=== PATIENT | male | born 1995 ===

== ENCOUNTER 2018-01-14 02:53 | Emergency (ER) | payer OTHER ==
[~2018-01-14] VITALS: Ht 172.7 cm; Wt 71.0 kg
[2018-01-14 02:52] VITALS: TEMP 36.8; Ht 172.7 cm; Wt 71.0 kg
[2018-01-14] MEDS ORDERED: RABIES VACCINE (IMOVAX) HUMAN DIPL CELL 2.5 INTER.UNIT/ML SYR IM. ONE (03:15)
[2018-01-14] MEDS ORDERED: RABIES IMMUNE GLOBULIN 300 UNIT/ML INJ IM. ONE (03:15)
[2018-01-14 03:44] VITALS: BP 135/79; PULSE 62; O2SAT 100
--- NOTE | 2018-01-14 06:57 | EMERGENCY ROOM VISIT NOTE ---
ED Visit Note First contact with patient: 02:54 CHIEF COMPLAINT: Rabies exposure HISTORY OF PRESENT ILLNESS: This 22 year old male patient presents to the emergency department with complaint of possible rabies exposure. The patient states that he was asleep in his apartment, and when he awoke there was a bat in the room. The patient does not have obvious injury or trauma. He was concerned for possible exposure. He is reportedly up-to-date on his tetanus and otherwise healthy. REVIEW OF SYSTEMS: A 6 system review of systems was completed with positives and pertinent negatives listed in the HPI. ALLERGIES: NKDA MEDICATIONS: None PMH: Otherwise healthy. SOCIAL HISTORY: Student living locally. PHYSICAL EXAM: Vital Signs: Reviewed Nurse's notes, vital signs stable. GENERAL : White male, in no acute distress, well-developed, well-nourished. HEAD: Atraumatic, without temporal or scalp tenderness. EYES: PERRLA, EOMI, no discharge or injection. SKIN: No obvious blood or skin injury. Capillary refill less than 2 seconds. NEUROLOGICAL: Alert and oriented to person place and time. Normal sensation to light and sharp touch. MUSCULOSKELETAL: Motor functions grossly intact of the upper and lower extremities. Full range of motion. EMERGENCY DEPARTMENT COURSE: I examined the patient. The patient was given RIG 20 Units/kg. The patient was given Immovax 1ml IM. The patient was observed for 20 minutes with no reaction. The patient was discharged home in stable condition with instructions as below. Allergies Coded Allergies: No Known Allergies (Unverified , 01/14/18) Vital Signs Date Time Temp Pulse Resp B/P (MAP) Pulse Ox O2 Delivery O2 Flow Rate FiO2 01/14/18 03:44 62 18 135/79 100 01/14/18 02:52 36.8 55 16 115/77 98 Room Air Medications Administered Medications (Trade) Dose Ordered Sig/Cristine Route Start Time Stop Time Status Last Admin Dose Admin Rabies Vaccine Human Diploid Cell (Imovax Rabies) 2.5 interunit ONCE ONCE IM. 01/14/18 03:15 01/14/18 03:16 DC 01/14/18 03:26 2.5 INTERUNIT Rabies Immune Globulin (HyperRAB) 1,420 unit ONCE ONCE IM. 01/14/18 03:15 01/14/18 03:16 DC 01/14/18 03:27 1,420 UNIT Departure Information Impression Primary Impression: Need for post exposure prophylaxis for rabies Dispostion Home / Self-Care Condition GOOD Forms HOME CARE DOCUMENTATION FORM, IMPORTANT VISIT INFORMATION Patient Instructions My [facility] Additional Instructions You were seen and evaluated today on an emergency basis only. This is not a substitute for, or an effort to provide, complete comprehensive medical care. It is not possible to recognize and treat all injuries or illnesses in a single emergency department visit. For this reason it is recommended that you followup with The emergency department for repeat immunizations as follows Day 3: Thursday01/17/2018 Day 7: 01/21/2018 Day 14: 01/28/2018 You are welcome to return to the emergency department anytime with new, worsening, or concerning symptoms.
== END 2018-01-14 03:44 | disposition home or self-care (01) ==
LOC: C.EDA 02:54
DX: Z20.3 Contact with and (suspected) exposure to rabies (principal); Z23 Encounter for immunization; W55.89XA Other contact with other mammals, initial encounter

== ENCOUNTER 2018-01-17 14:22 | Emergency (ER) | payer OTHER ==
[~2018-01-17] VITALS: Ht 172.7 cm; Wt 70.2 kg
[2018-01-17 14:25] VITALS: BP 117/64; PULSE 58; TEMP 36.8; O2SAT 96; Ht 172.7 cm; Wt 70.2 kg
[2018-01-17] MEDS ORDERED: RABIES VACCINE (IMOVAX) HUMAN DIPL CELL 2.5 INTER.UNIT/ML SYR IM. ONE (14:45)
--- NOTE | 2018-01-17 14:47 | EMERGENCY ROOM VISIT NOTE ---
ED Visit Note First contact with patient: 14:38 CHIEF COMPLAINT: Rabies prophylaxis HISTORY OF PRESENT ILLNESS: This 22-year-old male patient presents to the emergency department, ambulatory, for their second rabies shot. The patient has not had any complications from the previous injections. They deny any other complaints. The patient was initially seen due to a bat in the house. There is no known bite or injury. REVIEW OF SYSTEMS: A 6 system review of systems was completed with positives and pertinent negatives listed in the HPI. ALLERGIES: None MEDICATIONS: None PMH: Unchanged from previous visit. Social History: The patient is a [employer] student. He lives locally with his roommate. He denies drug, tobacco use. He admits to social drinking. PHYSICAL EXAM: Vital Signs: Reviewed Nurse's notes, vital signs stable. GENERAL : This is a 22-year-old white male, in no acute distress, well-developed, well- nourished. HEAD: Atraumatic, without temporal or scalp tenderness. EYES: PERRLA, EOMI, no discharge or injection. HEART: RRR, no murmurs, gallops, or rubs. LUNGS: CTA bilaterally without wheezes, rhonchi, or rales. SKIN: Normal. NEUROLOGICAL: Alert and cooperative. Sensory and motor functions grossly intact. EMERGENCY DEPARTMENT COURSE: I examined the patient. The patient was given Imovax 1ml IM. The patient was observed for 20 minutes with no reaction. The patient was discharged home in stable condition. I attest that I have personally reviewed the patient's current medication list. Patient was found to have normal blood pressure on screening and does not require follow-up. DIAGNOSIS: Rabies prophylaxis The chart was completed utilizing [email or web address] Speech voice recognition software. Grammatical errors, random word insertions, pronoun errors, and incomplete sentences are an occasional consequence of this system due to software limitations, ambient noise, and hardware issues. Any formal questions or concerns about the content, text, or information contained within the body of this dictation should be directly addressed to the provider for clarification. Allergies Coded Allergies: No Known Allergies (Unverified , 01/14/18) Vital Signs Date Time Temp Pulse Resp B/P (MAP) Pulse Ox O2 Delivery O2 Flow Rate FiO2 01/17/18 14:25 36.8 58 18 117/64 96 Room Air Medications Administered Medications (Trade) Dose Ordered Sig/Cristine Route Start Time Stop Time Status Last Admin Dose Admin Rabies Vaccine Human Diploid Cell (Imovax Rabies) 2.5 interunit ONCE ONCE IM. 01/17/18 14:45 01/17/18 14:46 DC 01/17/18 15:10 2.5 INTERUNIT Departure Information Impression Primary Impression: Rabies, need for prophylactic vaccination against Additional Impression: Exposure to bat without known bite Dispostion Home / Self-Care Condition GOOD Referrals No Doctor, Assigned (PCP) Patient Instructions My [facility], Rabies Additional Instructions You were seen in the emergency department today for your second rabies vaccination. Please follow the previously outlined schedule and return on the days advised. Return to the emergency department sooner for any concerns or adverse reaction to vaccination. Problem Qualifiers
== END 2018-01-17 15:29 | disposition home or self-care (01) ==
LOC: C.EDB 14:23 → C.EDD 15:29
DX: Z23 Encounter for immunization (principal); Z20.3 Contact with and (suspected) exposure to rabies

== ENCOUNTER 2018-01-21 07:06 | Emergency (ER) | payer OTHER ==
[~2018-01-21] VITALS: Ht 172.7 cm; Wt 67.5 kg
[2018-01-21 07:17] VITALS: BP 120/78; PULSE 52; TEMP 36.5; O2SAT 100; Ht 172.7 cm; Wt 67.5 kg
[2018-01-21] MEDS ORDERED: RABIES VACCINE (IMOVAX) HUMAN DIPL CELL 2.5 INTER.UNIT/ML SYR IM. ONE (07:30)
--- NOTE | 2018-01-21 07:32 | EMERGENCY ROOM VISIT NOTE ---
ED Visit Note First contact with patient: 07:23 CHIEF COMPLAINT: "Rabies vaccine repeat visit". HISTORY OF PRESENT ILLNESS: This 22-year-old male patient presents to the emergency department via private vehicle for their subsequent rabies shot. The patient has not had any complications from the previous injections. They deny any other complaints. REVIEW OF SYSTEMS: A 6 system review of systems was completed with positives and pertinent negatives listed in the HPI. ALLERGIES: As noted below MEDICATIONS: As noted below PMH: Unchanged from previous visit. PHYSICAL EXAM: Vital Signs: Reviewed Nurse's notes, vital signs stabl. EYES: Sclerae anicteric. SKIN: Normal. NEUROLOGICAL: Alert and cooperative. Sensory and motor functions grossly intact. EMERGENCY DEPARTMENT COURSE: I examined the patient. The patient was given 2.5 IU/ 1ml IM of Imovax. The patient was observed for 20 minutes with no reaction. The patient was discharged home in stable condition. Current/Historical Medications No Active Prescriptions or Reported Meds Allergies Coded Allergies: No Known Allergies (Unverified , 01/21/18) Vital Signs Date Time Temp Pulse Resp B/P (MAP) Pulse Ox O2 Delivery O2 Flow Rate FiO2 01/21/18 07:17 36.5 52 20 120/78 100 Room Air Medications Administered Medications (Trade) Dose Ordered Sig/Cristine Route Start Time Stop Time Status Last Admin Dose Admin Rabies Vaccine Human Diploid Cell (Imovax Rabies) 2.5 interunit ONCE ONCE IM. 01/21/18 07:30 01/21/18 07:31 DC 01/21/18 07:40 2.5 INTERUNIT Departure Information Impression Primary Impression: Rabies, need for prophylactic vaccination against Dispostion Home / Self-Care Condition GOOD Prescriptions No Active Prescriptions or Reported Meds Referrals No Doctor, Assigned (PCP) Patient Instructions My [facility] Additional Instructions You were seen in the emergency department for your subsequent rabies vaccination. Please continue to follow the directions given an initial handout. Any difficulties or concerns please return.
== END 2018-01-21 07:52 | disposition home or self-care (01) ==
LOC: C.EDB 07:07 → C.EDA 07:52
DX: Z23 Encounter for immunization (principal); Z20.3 Contact with and (suspected) exposure to rabies